=== PATIENT | female | born 1960 | race Caucasian/White ===

== ENCOUNTER 2017-04-20 11:57 | Emergency (ER) | payer MEDICARE, OTHER ==
[~2017-04-20] VITALS: Ht 152.4 cm; Wt 71.2 kg
[~2017-04-20 11:57] MED LIST: ALPR2TAB5 PO; BACL-19 PO; BUPR1PAT TD; BUSP10TA PO; BUTA1CAP58 PO; GABA600T2 PO; HYDR-3144 PO; HYDR50CA PO; LAMO150T3 PO; LEVO100T5 PO; TOPI200T25 PO; TRAZ100T15 PO; ZIPR80CA2 PO
[2017-04-20] MEDS ORDERED: SODIUM CHLORIDE 0.9% 1,000 ML IV ONE (12:32)
[2017-04-20] MEDS ORDERED: SODIUM CHLORIDE 0.9% 1,000ML IVBOLUS ONE (13:00)
[2017-04-20] MEDS ORDERED: SODIUM CHLORIDE FLUSH 10ML SYR IVF ONE (13:00)
[2017-04-20 13:04] LABS: BLOOD UREA NITROGEN 9 mg/dL (7-18)
[2017-04-20 13:17] LABS: DAU SCREEN DISCLAIMER
[2017-04-20 15:14] VITALS: BP 159/77
== END 2017-04-20 15:16 | disposition home or self-care (01) ==
LOC: ED 13:22
DX: S09.90XA Unspecified injury of head, initial encounter (principal); F31.9 Bipolar disorder, unspecified; I10 Essential (primary) hypertension; M79.7 Fibromyalgia; X58.XXXA Exposure to other specified factors, initial encounter; Y93.89 Activity, other specified; Y92.89 Other specified places as the place of occurrence of the external cause; Y99.8 Other external cause status
CPT/HCPCS: 36415; 80048; 80307; 80329; 81001; 82040; 83605; 84439; 84443; 85025; 93005; 96360; 99285; J7030; G0480